=== PATIENT | male | born 1970 | race Caucasian/White ===

== ENCOUNTER 2017-05-25 05:40 | Inpatient (IN) ==
[2017-05-24 10:34] LABS: Basophils # 0.1 10*3/uL (0.0-0.2); Basophils % 0.5 % (0.0-0.8); Eosinophils # 0.3 10*3/uL (0.0-0.87); Eosinophils % 2.5 % (0.00-10.9); Hematocrit 39.7 VOL% (42.0-52.0); Hemoglobin 13.5 GM/DL (14.0-18.0); Immature Granulocytes % 0.3 %; Immature Granulocytes Absolute 0.03 #; Lymphocytes # 1.8 10*3/uL (1.4-4.0); Lymphocytes % 18.2 % (21.2-54.2); Mean Corpuscular Hemoglobin 31 PG (27-34); Mean Corpuscular Volume 90.4 FL (87-102); Mean Platelet Volume 9.1 FL (9.6-12.0); Monocytes # 0.8 10*3/uL (0.11-0.8); Monocytes % 8.3 % (1.7-12.7); Neutrophils % 70.2 % (38.7-73.9); Platelet Count 221 T/CUMM (130-400); Red Blood Count 4.39 MC/CUMM (3.8-5.5); Red Cell Distribution Width 13.7 % (9.3-17.3)
[2017-05-24 10:40] LABS: Apearance,Urine CLEAR (Clear); Bilirubin,Urine Negative (Negative); Blood, Urine Negative (Negative); Glucose,Urine (UA) Negative (Negative); Ketones,Urine Negative (Negative); Nitrite,Urine Negative (Negative); Protein,Urine Negative; Squamous Epithelial Cell,Urine Occasional /HPF (0-10); Urine Color Yellow (Yellow); Urine Specific Gravity 1.011 (1.001-1.035); Urine Urobilinogen < 2.0 EU/DL (0.2-1.0); WBC,Urine <1 /HPF (0-6)
[2017-05-24 10:43] LABS: PT Patient Result 10.1 SECS; Partial Thromboplastin Time 29.9 SECS (0-40)
[2017-05-24 11:08] LABS: Calcium 9.3 MG/DL (8.5-10.1); Osmolality,Calculated 275.5 MOS/KG (273-304); Potassium 3.9 MMOL/L (3.5-5.1)
[~2017-05-25 05:40] MED LIST: PAPAVERINE 60 MG/2 ML VIAL ONE; SUFentanil 250 MCG/5 ML AMP ONE; TISSUE ADHESIVE 1 EACH APPLICATOR TOP ONE; VANCOMYCIN 1,000 MG VIAL ONE
[2017-05-25] MEDS ORDERED: SODIUM CHLORIDE 0.9% 1,000 ML IV PRN (06:00)
[2017-05-25] MEDS ORDERED: DIAZEPAM 5 MG TABLET ONE (06:08)
[2017-05-25] MEDS: LACTATED RINGERS 1,000 ML IV SCH (06:14)
[2017-05-25] MEDS ORDERED: DIAZEPAM 5 MG TABLET PO ONE (06:21)
[2017-05-25] MEDS ORDERED: CEFUROXIME 1,500 MG VIAL ONE (07:40)
[2017-05-25 07:50] LABS: ABG Base Excess 1.5 MMOL/L (-2.5-2.5); ABG HCO3 25.8 MMOL/L (20-26); ABG Oxygen Saturation 99.7 % (95-100); ABG PCO2 43.5 MM HG (35-48); ABG PH 7.395 (7.35-7.45); ABG TCO2 23.9 MMOL/L (23-27); Glucose Heart Surgery 99 MG/DL (74-106); Hematocrit Heart Surgery 34.3 PERCENT (42-52); Hemoglobin Heart Surgery 11.1 G/DL (14.0-18.0); Ionized Calcium Arterial 1.18 MMOL/L (1.21-1.46); PCO2 Patient Temp Arterial 43.5 MMHG; PH Patient Temp Arterial 7.395; Patient Temperature 37 CELCIUS; Potassium Heart/CVR 3.5 MMOL/L (3.5-5.1); Sodium Heart/CVR 140 MMOL/L (135-145)
[2017-05-25 07:56] LABS: Apearance,Urine CLEAR (Clear); Bilirubin,Urine Negative (Negative); Blood, Urine Negative (Negative); Glucose,Urine (UA) Negative (Negative); Ketones,Urine Negative (Negative); Mucus,Urine Occasional /LPF (Occasional); Nitrite,Urine Negative (Negative); Protein,Urine 30 MG/DL; RBC,Urine 1 /HPF (0-4); Urine Color Yellow (Yellow); Urine Specific Gravity 1.013 (1.001-1.035); Urine Urobilinogen < 2.0 EU/DL (0.2-1.0); WBC,Urine 1 /HPF (0-6)
[2017-05-25 09:34] LABS: Hemoglobin Heart Surgery 7.5 G/DL (14.0-18.0); PCO2 Patient Temp Venous 33.7 MM HG; PH Patient Temp Venous 7.534; PO2 Patient Temp Venous 33.4 MM HG; VBG Base Excess 4.7 MEQ/L (0-4); VBG HCO3 28.5 MEQ/L (24-28); VBG Oxygen Saturation 75.5 %; VBG PCO2 38.4 MMHG (41-51); VBG PH 7.488; VBG PO2 41.3 MMHG (17-40)
[2017-05-25] MEDS ORDERED: POTASSIUM CHLORIDE RIDER 100 ML IV ONE (10:03)
[2017-05-25] MEDS ORDERED: CALCIUM CHLORIDE 1,000 MG/10 ML SYRINGE IV ONE (10:03)
[2017-05-25] MEDS ORDERED: PHENYLEPHRINE DRIP 40 MG/250 ML PREMIX IV ONE (10:03)
[2017-05-25] MEDS ORDERED: NITROPRUSSIDE 50 MG/2 ML VIAL ONE (10:03)
[2017-05-25] MEDS ORDERED: ALBUMIN 5% 12.5 GM/250 ML VIAL IV ONE (10:04)
[2017-05-25 10:07] LABS: Hematocrit Heart Surgery 23.9 PERCENT (42-52); Hemoglobin Heart Surgery 7.7 G/DL (14.0-18.0); PH Patient Temp Venous 7.492; PO2 Patient Temp Venous 31.1 MM HG; Potassium Heart/CVR 4.5 MMOL/L (3.5-5.1); VBG Base Excess 3.1 MEQ/L (0-4); VBG HCO3 26.9 MEQ/L (24-28); VBG Oxygen Saturation 75.6 %; VBG PCO2 41.3 MMHG (41-51); VBG PH 7.432; VBG PO2 41.1 MMHG (17-40)
[2017-05-25 10:36] LABS: Hemoglobin Heart Surgery 7.7 G/DL (14.0-18.0); PCO2 Patient Temp Venous 40.6 MM HG; PH Patient Temp Venous 7.428; PO2 Patient Temp Venous 37.4 MM HG; Potassium Heart/CVR 4.1 MMOL/L (3.5-5.1); VBG Base Excess 2.4 MEQ/L (0-4); VBG HCO3 26.2 MEQ/L (24-28); VBG Oxygen Saturation 69.5 %; VBG PCO2 40.6 MMHG (41-51); VBG PH 7.428; VBG PO2 37.4 MMHG (17-40)
[2017-05-25] MEDS ORDERED: THROMBIN TOPICAL (RECOMBINANT) 5,000 UNIT VIAL TOP ONE (10:57)
[2017-05-25 11:15] LABS: ABG Base Excess -0.1 MMOL/L (-2.5-2.5); ABG HCO3 24.4 MMOL/L (20-26); ABG Oxygen Saturation 97.5 % (95-100); ABG PCO2 36.5 MM HG (35-48); ABG PH 7.427 (7.35-7.45); ABG PO2 95.5 MM HG (80-95); ABG TCO2 22.4 MMOL/L (23-27); Glucose Heart Surgery 227 MG/DL (74-106); Hematocrit Heart Surgery 24.5 PERCENT (42-52); Hemoglobin Heart Surgery 7.9 G/DL (14.0-18.0); Ionized Calcium Arterial 1.11 MMOL/L (1.21-1.46); PCO2 Patient Temp Arterial 36.5 MMHG; PH Patient Temp Arterial 7.427; PO2 Patient Temp Arterial 95.5 MM HG; Patient Temperature 37 CELCIUS; Potassium Heart/CVR 3.2 MMOL/L (3.5-5.1); Sodium Heart/CVR 134 MMOL/L (135-145)
[2017-05-25] MEDS ORDERED: ALBUMIN 25% 25 GM/100 ML VIAL IV ONE (11:22)
[2017-05-25] MEDS ORDERED: SODIUM BICARBONATE 50 MEQ/50 ML SYRINGE IV ONE (11:22)
[2017-05-25] MEDS ORDERED: MAGNESIUM SULFATE 1 GM/2 ML VIAL ONE (11:22)
[2017-05-25] MEDS ORDERED: PHENYLEPHRINE DRIP 20 MG/250 ML PREMIX IV ONE (11:22)
[2017-05-25] MEDS ORDERED: DEXTROSE 5% KCL 20 MEQ 20 MEQ/1,000 ML BAG IV ONE (11:22)
[2017-05-25] MEDS ORDERED: PROTAMINE SULFATE 250 MG/25 ML VIAL IV ONE (11:22)
[2017-05-25] MEDS ORDERED: methylPREDNISolone SOD SUC 1,000 MG/8 ML VIAL ONE (11:23)
[2017-05-25] MEDS ORDERED: HEPARIN 10,000 UNIT/10 ML VIAL ONE (11:23)
[2017-05-25] MEDS ORDERED: MANNITOL 12.5 GM/50 ML VIAL IV ONE (11:23)
[2017-05-25] MEDS ORDERED: POTASSIUM CHLORIDE 20 MEQ/10 ML VIAL ONE (11:24)
[2017-05-25] MEDS ORDERED: FUROSEMIDE 20 MG/2 ML VIAL ONE (11:24)
[2017-05-25] MEDS: PHENYLEPHRINE DRIP 40 MG/250 ML PREMIX IV SCH (12:42)
[2017-05-25] MEDS: SODIUM CHLORIDE 0.9% 250 ML IV PRN ×4 (12:42→15:01)
[2017-05-25] MEDS ORDERED: MIDAZOLAM 2 MG/2 ML VIAL IV PRN (12:49)
[2017-05-25] MEDS ORDERED: ACETAMINOPHEN 650 MG SUPP RECTAL PRN (12:49)
[2017-05-25] MEDS ORDERED: CALCIUM CHLORIDE 1,000 MG/10 ML SYRINGE IV PRN (12:49)
[2017-05-25] MEDS ORDERED: MAGNESIUM SULF RIDER 4 GM in PREMIX 1 EACH IV PRN (12:49)
[2017-05-25] MEDS ORDERED: ONDANSETRON 4 MG/2 ML VIAL IV PRN (12:49)
[2017-05-25] MEDS ORDERED: POTASSIUM CHLORIDE RIDER 10 MEQ in PREMIX 1 EACH IV PRN (12:49)
[2017-05-25] MEDS ORDERED: DEXTROSE 50% 25 GM/50 ML VIAL IV PRN ×2 (12:49)
[2017-05-25] MEDS ORDERED: POTASSIUM CHLORIDE RIDER 20 MEQ in PREMIX 1 EACH IV PRN (12:49)
[2017-05-25] MEDS ORDERED: MORPHINE 10 MG/1 ML VIAL IV PRN (12:49)
[2017-05-25] MEDS ORDERED: CHLORHEXIDINE 4% SOLN 118 ML BOTTLE TOP PRN (12:49)
[2017-05-25] MEDS ORDERED: EPINEPHrine 1 MG/ML VIAL ONE ×2 (12:50→15:18)
[2017-05-25] MEDS: ALBUMIN 5% 12.5 GM in PREMIX 1 EACH IV PRN ×3 (12:59→18:48)
[2017-05-25] MEDS ORDERED: SODIUM CHLORIDE 0.45% 1,000 ML IV SCH (13:00)
[2017-05-25 13:21] LABS: ABG Base Excess 1.2 MMOL/L (-2.5-2.5); ABG HCO3 25.6 MMOL/L (20-26); ABG PCO2 39.8 MM HG (35-48); ABG PH 7.427 (7.35-7.45); ABG PO2 92.2 MM HG (80-95); ABG TCO2 26.9 MMOL/L (23-27); Glucose Heart Surgery 216 MG/DL (74-106); Hemoglobin Heart Surgery 7.7 G/DL (14.0-18.0); Potassium Heart/CVR 3.2 MMOL/L (3.5-5.1)
[2017-05-25 13:23] LABS: Basophils % 0.1 % (0.0-0.8); Eosinophils % 0.1 % (0.00-10.9); Hematocrit 21.3 VOL% (42.0-52.0); Hemoglobin 7.3 GM/DL (14.0-18.0); Immature Granulocytes % 0.7 %; Lymphocytes # 0.7 10*3/uL (1.4-4.0); Lymphocytes % 4.5 % (21.2-54.2); Mean Corpuscular HGB Conc 34.3 GM/DL (32-36); Mean Corpuscular Hemoglobin 31 PG (27-34); Mean Platelet Volume 9.5 FL (9.6-12.0); Monocytes # 0.4 10*3/uL (0.11-0.8); Monocytes % 2.6 % (1.7-12.7); Neutrophils # 13.6 10*3/uL (1.4-7.4); Platelet Count 212 T/CUMM (130-400); Red Blood Count 2.34 MC/CUMM (3.8-5.5); Red Cell Distribution Width 13.9 % (9.3-17.3); White Blood Count 14.8 T/CUMM (4-12)
[2017-05-25 13:40] LABS: INR 1.1; Partial Thromboplastin Time 32.2 SECS (0-40)
[2017-05-25 13:46] LABS: Lactic Acid 2.7 MMOL/L (0.4-2.0)
[2017-05-25 13:58] LABS: Blood Urea Nitrogen 10 MG/DL (7-18); Calcium 7.7 MG/DL (8.5-10.1); Glucose 209 MG/DL (74-106); Osmolality,Calculated 281.5 MOS/KG (273-304); Potassium 3.4 MMOL/L (3.5-5.1); Sodium 139 MMOL/L (136-145)
[2017-05-25 14:26] LABS: Anisocytosis 1+
[2017-05-25] MEDS: INSULIN REGULAR DRIP 100 ML IV SCH (14:26)
[2017-05-25 14:27] LABS: Hypochromasia Slight; Macrocytosis Slight; Polychromasia Slight
[2017-05-25 14:28] LABS: Basophilic Stippling Slight; Platelet Estimate Normal
[2017-05-25] MEDS: SODIUM CHLORIDE 0.45% 1,000 ML IV SCH (14:56)
[2017-05-25] MEDS ORDERED: MIDAZOLAM 10 MG/2 ML VIAL ONE (15:16)
[2017-05-25] MEDS ORDERED: SEVOFLURANE 1 UNIT/15 MINUTE INH ONE (15:16)
[2017-05-25] MEDS ORDERED: ePHEDrine 50 MG/ML AMP ONE (15:16)
[2017-05-25] MEDS ORDERED: PHENYLEPHRINE 10 MG/1 ML VIAL IV ONE (15:17)
[2017-05-25] MEDS ORDERED: VECURONIUM 10 MG VIAL IV ONE (15:17)
[2017-05-25] MEDS ORDERED: ETOMIDATE 40 MG/20 ML VIAL IV ONE (15:17)
[2017-05-25] MEDS ORDERED: LACTATED RINGERS 1,000 ML IV ONE (15:17)
[2017-05-25] MEDS ORDERED: methylPREDNISolone SOD SUC 125 MG/2 ML VIAL ONE (15:17)
[2017-05-25] MEDS ORDERED: SODIUM CHLORIDE 0.9% 1,000 ML IV ONE (15:17)
[2017-05-25] MEDS ORDERED: TRANEXAMIC ACID 1,000 MG/10 ML VIAL IV ONE (15:17)
[2017-05-25] MEDS ORDERED: CALCIUM CHLORIDE 1,000 MG/10 ML VIAL IV ONE (15:18)
[2017-05-25] MEDS ORDERED: PROTAMINE SULFATE 50 MG/5 ML VIAL IV ONE (15:18)
[2017-05-25] MEDS: INSULIN REGULAR 100 UNIT/ML IV PRN (16:40)
[2017-05-25 16:59] LABS: ABG HCO3 24.4 MMOL/L (20-26); ABG Oxygen Saturation 97.1 % (95-100); ABG PCO2 50.1 MM HG (35-48); ABG PH 7.329 (7.35-7.45); ABG PO2 97.4 MM HG (80-95); ABG TCO2 24.5 MMOL/L (23-27); Glucose Heart Surgery 155 MG/DL (74-106); Hematocrit Heart Surgery 27.8 PERCENT (42-52); Potassium Heart/CVR 3.9 MMOL/L (3.5-5.1)
[2017-05-25] MEDS: MORPHINE 2 MG/1 ML SYRINGE IV PRN ×2 (18:13→19:17)
[2017-05-25 18:30] LABS: ABG Base Excess 0.4 MMOL/L (-2.5-2.5); ABG HCO3 24.8 MMOL/L (20-26); ABG Oxygen Saturation 97.4 % (95-100); ABG PCO2 47.6 MM HG (35-48); ABG PH 7.349 (7.35-7.45); ABG PO2 96.5 MM HG (80-95); ABG TCO2 24.7 MMOL/L (23-27); Glucose Heart Surgery 135 MG/DL (74-106); Hematocrit Heart Surgery 23.8 PERCENT (42-52); Hemoglobin Heart Surgery 7.6 G/DL (14.0-18.0); Potassium Heart/CVR 4.1 MMOL/L (3.5-5.1)
[2017-05-25] MEDS ORDERED: LEVALBUTEROL 1.25 MG/3 ML NEB RESP TX ONE (20:01)
[2017-05-25] MEDS: CHLORHEXIDINE 0.12% ORAL RINSE 60 ML BOTTLE SWISH/SPIT SCH (20:29)
[2017-05-25] MEDS: CEFUROXIME INJ 1,500 MG in SYRINGE 1 EACH IV SCH (20:29)
[2017-05-25] MEDS: MAGNESIUM SULF RIDER 2 GM in PREMIX 1 EACH IV PRN ×2 (21:00→23:18)
[2017-05-26] MEDS: MORPHINE 2 MG/1 ML SYRINGE IV PRN ×7 (00:01→23:45)
[2017-05-26] MEDS: LEVALBUTEROL 1.25 MG/3 ML NEB RESP TX SCH ×6 (00:05→19:51)
[2017-05-26] MEDS: SODIUM CHLORIDE 0.45% 1,000 ML IV SCH (02:14)
[2017-05-26] MEDS: INSULIN REGULAR 100 UNIT/ML IV PRN (04:07)
[2017-05-26 05:03] LABS: Basophils % 0.1 % (0.0-0.8); Hematocrit 21.3 VOL% (42.0-52.0); Hemoglobin 7.1 GM/DL (14.0-18.0); Immature Granulocytes % 0.5 %; Immature Granulocytes Absolute 0.08 #; Lymphocytes # 0.7 10*3/uL (1.4-4.0); Lymphocytes % 4.1 % (21.2-54.2); Mean Corpuscular HGB Conc 33.3 GM/DL (32-36); Mean Corpuscular Hemoglobin 31 PG (27-34); Mean Corpuscular Volume 92.2 FL (87-102); Mean Platelet Volume 10.2 FL (9.6-12.0); Monocytes # 0.6 10*3/uL (0.11-0.8); Monocytes % 3.5 % (1.7-12.7); Neutrophils # 15.7 10*3/uL (1.4-7.4); Neutrophils % 91.8 % (38.7-73.9); Platelet Count 187 T/CUMM (130-400); Red Blood Count 2.31 MC/CUMM (3.8-5.5); Red Cell Distribution Width 14.3 % (9.3-17.3); White Blood Count 17.1 T/CUMM (4-12)
[2017-05-26 05:25] LABS: Band Neutrophils 6 % (0-10); Eosinophils 1 % (0-10); Lymphocytes 4 % (20-55); Segmented Neutrophils 88 % (50-85); Total Cells Counted 100
[2017-05-26 05:26] LABS: Microcytosis 1+; Platelet Estimate Adequate
[2017-05-26 05:31] LABS: Calcium 8.2 MG/DL (8.5-10.1); Osmolality,Calculated 283.3 MOS/KG (273-304)
[2017-05-26] MEDS ORDERED: oxyCODONE/ACETAMINOPHEN 5-325 MG TABLET PO PRN (06:11)
[2017-05-26] MEDS ORDERED: tiZANidine 4 MG TABLET PO ONE (06:14)
[2017-05-26] MEDS ORDERED: FUROSEMIDE 40 MG/4 ML VIAL IV ONE (06:51)
[2017-05-26] MEDS ORDERED: SODIUM CHLORIDE 0.45% 1,000 ML IV SCH ×2 (06:55→06:56)
[2017-05-26] MEDS ORDERED: predniSONE 20 MG TABLET PO SCH (07:00)
[2017-05-26] MEDS: CEFUROXIME INJ 1,500 MG in SYRINGE 1 EACH IV SCH ×2 (08:50→20:27)
[2017-05-26] MEDS: CHLORHEXIDINE 0.12% ORAL RINSE 60 ML BOTTLE SWISH/SPIT SCH ×2 (08:56→20:57)
[2017-05-26] MEDS: ASPIRIN EC 325 MG TABLET PO SCH (08:56)
[2017-05-26] MEDS: CARVEDILOL 3.125 MG TABLET PO SCH ×2 (08:56→18:45)
[2017-05-26] MEDS: HYDROCORTISONE 100 MG VIAL IV SCH ×2 (08:56→20:26)
[2017-05-26] MEDS ORDERED: FUROSEMIDE 40 MG TABLET PO SCH (09:00)
[2017-05-26] MEDS: LACTATED RINGERS 1,000 ML IV SCH (09:31)
[2017-05-26] MEDS: FUROSEMIDE 40 MG/4 ML VIAL IV SCH ×2 (09:34→17:15)
[2017-05-26] MEDS: ALLOPURINOL 300 MG TABLET PO SCH (10:24)
[2017-05-26] MEDS: VENLAFAXINE XR 75 MG CAPSULE PO SCH (10:24)
[2017-05-26] MEDS: PHENYLEPHRINE DRIP 40 MG/250 ML PREMIX IV SCH (12:06)
[2017-05-26] MEDS: INSULIN REGULAR DRIP 100 ML IV SCH (14:22)
[2017-05-26] MEDS: oxyCODONE/ACETAMINOPHEN 5-325 MG TABLET PO PRN ×2 (15:02→18:46)
[2017-05-26] MEDS: tiZANidine 4 MG TABLET PO SCH (20:27)
[2017-05-26] MEDS: ATORVASTATIN 40 MG TABLET PO SCH (20:27)
[2017-05-27] MEDS: LEVALBUTEROL 1.25 MG/3 ML NEB RESP TX SCH ×7 (01:13→23:30)
[2017-05-27] MEDS: oxyCODONE/ACETAMINOPHEN 5-325 MG TABLET PO PRN ×5 (02:10→21:40)
[2017-05-27 04:48] LABS: ABG Base Excess 4.6 MMOL/L (-2.5-2.5); ABG HCO3 28.5 MMOL/L (20-26); ABG Oxygen Saturation 93.1 % (95-100); ABG PCO2 50.2 MM HG (35-48); ABG PH 7.388 (7.35-7.45); ABG PO2 68.6 MM HG (80-95); ABG TCO2 28.4 MMOL/L (23-27); Allen Test Positive
[2017-05-27] MEDS: MORPHINE 2 MG/1 ML SYRINGE IV PRN ×3 (05:23→20:34)
[2017-05-27 05:24] LABS: Basophils % 0.1 % (0.0-0.8); Hematocrit 23.1 VOL% (42.0-52.0); Hemoglobin 7.8 GM/DL (14.0-18.0); Immature Granulocytes % 0.5 %; Lymphocytes # 0.8 10*3/uL (1.4-4.0); Lymphocytes % 4.1 % (21.2-54.2); Mean Corpuscular HGB Conc 33.8 GM/DL (32-36); Mean Corpuscular Hemoglobin 30 PG (27-34); Mean Corpuscular Volume 89.9 FL (87-102); Mean Platelet Volume 10.3 FL (9.6-12.0); Monocytes # 1.3 10*3/uL (0.11-0.8); Monocytes % 6.4 % (1.7-12.7); Neutrophils # 17.5 10*3/uL (1.4-7.4); Neutrophils % 88.9 % (38.7-73.9); Platelet Count 168 T/CUMM (130-400); Red Blood Count 2.57 MC/CUMM (3.8-5.5); Red Cell Distribution Width 14.8 % (9.3-17.3); White Blood Count 19.7 T/CUMM (4-12)
[2017-05-27 06:03] LABS: Band Neutrophils 1 % (0-10); Giant Platelets Few; Hypochromasia 1+; Lymphocytes 4 % (20-55); Microcytosis Slight; Ovalocytes Slight; Platelet Estimate Normal; Segmented Neutrophils 92 % (50-85); Total Cells Counted 100
[2017-05-27 06:35] LABS: Calcium 8.3 MG/DL (8.5-10.1); Osmolality,Calculated 283.5 MOS/KG (273-304); Potassium 4.1 MMOL/L (3.5-5.1)
[2017-05-27] MEDS ORDERED: ALLOPURINOL 300 MG TABLET PO SCH (09:00)
[2017-05-27] MEDS ORDERED: ASPIRIN EC 325 MG TABLET PO SCH (09:00)
[2017-05-27] MEDS ORDERED: FUROSEMIDE 40 MG TABLET PO SCH (09:19)
[2017-05-27] MEDS: ASPIRIN EC 325 MG TABLET PO SCH (09:36)
[2017-05-27] MEDS: VENLAFAXINE XR 75 MG CAPSULE PO SCH (09:36)
[2017-05-27] MEDS: CARVEDILOL 6.25 MG TABLET PO SCH ×2 (09:36→16:38)
[2017-05-27] MEDS: FUROSEMIDE 40 MG TABLET PO SCH ×2 (09:37→16:38)
[2017-05-27] MEDS: ALLOPURINOL 300 MG TABLET PO SCH (09:37)
[2017-05-27] MEDS: HYDROCORTISONE 100 MG VIAL IV SCH ×2 (09:40→20:35)
[2017-05-27] MEDS: CHLORHEXIDINE 0.12% ORAL RINSE 60 ML BOTTLE SWISH/SPIT SCH ×2 (09:46→20:35)
[2017-05-27] MEDS: CARVEDILOL 3.125 MG TABLET PO SCH (10:02)
[2017-05-27] MEDS: FUROSEMIDE 40 MG/4 ML VIAL IV SCH (10:03)
[2017-05-27] MEDS ORDERED: METOPROLOL TARTRATE 5 MG/5 ML VIAL IV ONE (17:28)
[2017-05-27] MEDS: ATORVASTATIN 40 MG TABLET PO SCH (20:34)
[2017-05-27] MEDS: tiZANidine 4 MG TABLET PO SCH (20:35)
[2017-05-28] MEDS: LEVALBUTEROL 1.25 MG/3 ML NEB RESP TX SCH ×6 (03:02→23:02)
[2017-05-28 05:13] LABS: Basophils % 0.1 % (0.0-0.8); Hematocrit 23.7 VOL% (42.0-52.0); Hemoglobin 7.8 GM/DL (14.0-18.0); Immature Granulocytes % 0.8 %; Immature Granulocytes Absolute 0.12 #; Lymphocytes # 0.8 10*3/uL (1.4-4.0); Lymphocytes % 5.5 % (21.2-54.2); Mean Corpuscular HGB Conc 32.9 GM/DL (32-36); Mean Corpuscular Hemoglobin 31 PG (27-34); Mean Corpuscular Volume 92.9 FL (87-102); Mean Platelet Volume 9.8 FL (9.6-12.0); Monocytes % 6.5 % (1.7-12.7); Neutrophils # 13.1 10*3/uL (1.4-7.4); Neutrophils % 87.1 % (38.7-73.9); Platelet Count 165 T/CUMM (130-400); Red Blood Count 2.55 MC/CUMM (3.8-5.5); Red Cell Distribution Width 14.6 % (9.3-17.3)
[2017-05-28 05:42] LABS: Calcium 8.3 MG/DL (8.5-10.1); Osmolality,Calculated 283.4 MOS/KG (273-304); Potassium 3.9 MMOL/L (3.5-5.1)
[2017-05-28] MEDS: ASPIRIN EC 325 MG TABLET PO SCH (09:12)
[2017-05-28] MEDS: VENLAFAXINE XR 75 MG CAPSULE PO SCH (09:12)
[2017-05-28] MEDS: ALLOPURINOL 300 MG TABLET PO SCH (09:12)
[2017-05-28] MEDS: CARVEDILOL 6.25 MG TABLET PO SCH ×2 (09:12→16:41)
[2017-05-28] MEDS: FUROSEMIDE 40 MG TABLET PO SCH ×2 (09:12→15:32)
[2017-05-28] MEDS: HYDROCORTISONE 100 MG VIAL IV SCH ×2 (09:14→21:11)
[2017-05-28] MEDS: CHLORHEXIDINE 0.12% ORAL RINSE 60 ML BOTTLE SWISH/SPIT SCH ×2 (09:17→21:18)
[2017-05-28] MEDS: oxyCODONE/ACETAMINOPHEN 5-325 MG TABLET PO PRN ×3 (10:58→21:10)
[2017-05-28] MEDS: ATORVASTATIN 40 MG TABLET PO SCH (21:07)
[2017-05-28] MEDS: tiZANidine 4 MG TABLET PO SCH (21:07)
[2017-05-29] MEDS: LEVALBUTEROL 1.25 MG/3 ML NEB RESP TX SCH ×6 (02:45→23:44)
[2017-05-29] MEDS: ASPIRIN EC 325 MG TABLET PO SCH (09:07)
[2017-05-29] MEDS: FUROSEMIDE 40 MG TABLET PO SCH ×2 (09:07→16:12)
[2017-05-29] MEDS: CARVEDILOL 6.25 MG TABLET PO SCH ×2 (09:08→16:12)
[2017-05-29] MEDS: CHLORHEXIDINE 0.12% ORAL RINSE 60 ML BOTTLE SWISH/SPIT SCH ×2 (09:08→20:56)
[2017-05-29] MEDS: VENLAFAXINE XR 75 MG CAPSULE PO SCH (09:08)
[2017-05-29] MEDS: HYDROCORTISONE 100 MG VIAL IV SCH ×2 (09:10→20:56)
[2017-05-29] MEDS: ALLOPURINOL 300 MG TABLET PO SCH (09:13)
[2017-05-29] MEDS: LOSARTAN 25 MG TABLET PO SCH (20:54)
[2017-05-29] MEDS: ATORVASTATIN 40 MG TABLET PO SCH (20:54)
[2017-05-29] MEDS: tiZANidine 4 MG TABLET PO SCH (20:54)
[2017-05-29] MEDS: oxyCODONE/ACETAMINOPHEN 5-325 MG TABLET PO PRN (23:18)
[2017-05-30] MEDS: LEVALBUTEROL 1.25 MG/3 ML NEB RESP TX SCH ×3 (03:17→13:34)
[2017-05-30 05:10] LABS: Basophils % 0.1 % (0.0-0.8); Eosinophils # 0.2 10*3/uL (0.0-0.87); Eosinophils % 1.3 % (0.00-10.9); Hematocrit 27.5 VOL% (42.0-52.0); Hemoglobin 9.3 GM/DL (14.0-18.0); Immature Granulocytes % 0.6 %; Immature Granulocytes Absolute 0.07 #; Lymphocytes # 2.2 10*3/uL (1.4-4.0); Lymphocytes % 18.8 % (21.2-54.2); Mean Corpuscular HGB Conc 33.8 GM/DL (32-36); Mean Corpuscular Hemoglobin 31 PG (27-34); Mean Corpuscular Volume 90.5 FL (87-102); Mean Platelet Volume 9.8 FL (9.6-12.0); Monocytes % 8.9 % (1.7-12.7); NRBC # 0.02 10*3/uL; Neutrophils # 8.2 10*3/uL (1.4-7.4); Neutrophils % 70.3 % (38.7-73.9); Platelet Count 228 T/CUMM (130-400); Red Blood Count 3.04 MC/CUMM (3.8-5.5); Red Cell Distribution Width 13.8 % (9.3-17.3); White Blood Count 11.6 T/CUMM (4-12)
[2017-05-30 05:44] LABS: Calcium 8.8 MG/DL (8.5-10.1); Potassium 3.6 MMOL/L (3.5-5.1)
[2017-05-30] MEDS: ALLOPURINOL 300 MG TABLET PO SCH (08:26)
[2017-05-30] MEDS: VENLAFAXINE XR 75 MG CAPSULE PO SCH (08:26)
[2017-05-30] MEDS: FUROSEMIDE 40 MG TABLET PO SCH (08:26)
[2017-05-30] MEDS: LOSARTAN 25 MG TABLET PO SCH (08:26)
[2017-05-30] MEDS: ASPIRIN EC 325 MG TABLET PO SCH (08:27)
[2017-05-30] MEDS: HYDROCORTISONE 100 MG VIAL IV SCH (08:27)
[2017-05-30] MEDS: CARVEDILOL 6.25 MG TABLET PO SCH (08:27)
[2017-05-30] MEDS: CHLORHEXIDINE 0.12% ORAL RINSE 60 ML BOTTLE SWISH/SPIT SCH (08:28)
[2017-05-30] MEDS ORDERED: hydrALAZINE 25 MG TABLET PO SCH (09:00)
[2017-05-30 12:55] VITALS: BP 125/77
[2017-05-30] MEDS: oxyCODONE/ACETAMINOPHEN 5-325 MG TABLET PO PRN (13:27)
== END 2017-05-30 13:55 | disposition home health service (06) | DRG 235 ==
LOC: N.SDSINP 05:40 → N.CVR 07:48 → N.ICU 05-26 12:16 → N.TELES 05-27 21:47
PROVIDERS: ADMIT Thoracic Surgery (Cardiothoracic Vascular Surgery); ATTEND Thoracic Surgery (Cardiothoracic Vascular Surgery)